=== PATIENT | female | born 1990 | race African-American/Black ===

== ENCOUNTER 2016-11-27 19:28 | Emergency (ER) | payer OTHER ==
[2016-11-27 20:28] LABS: UA SPECIFIC GRAVITY 1.015 (1.005-1.035); microscopic required? YES; urine erythrocyte 1+ (NEGATIVE)
[2016-11-27 20:31] LABS: BASOPHIL % 0.5 % (0-2); PLATELET COUNT 258 x10^3mcL (130-400); RED CELL DISTRIBUTION WIDTH 14.5 % (11.5-14.5)
[2016-11-27 23:11] VITALS: BP 110/58
== END 2016-11-27 23:11 | disposition home or self-care (01) ==
LOC: ED 19:28
PROVIDERS: Emergency Medicine
DX: O98.311 Other infections with a predominantly sexual mode of transmission complicating pregnancy, first trimester (principal); A59.01 Trichomonal vulvovaginitis; Z3A.08 8 weeks gestation of pregnancy
CPT/HCPCS: 87491; 87591